=== PATIENT | male | born 1985 | race Caucasian/White ===

== ENCOUNTER 2018-01-24 13:16 | Emergency (ER) | payer OTHER ==
[2018-01-24] MEDS ORDERED: TORAdol 30 mg Injection IM ONE (13:52)
--- NOTE | 2018-01-24 13:58 | ERPHSYRPT ---
- History of Present Illness Time Seen by Provider: 01/24/18 13:54 Source: patient Exam Limitations: no limitations Patient Subjective Stated Complaint: pain to right wrist and fingers for one week. saw HEDIS SPECIALIST and was given antinflammatory. states is not getting any better. is to see ortho at the end of january Triage Nursing Assessment: ambulated to room per self. skin w/d, color normal. patient holding arm up in air and is shaking extremities. no injury noted to extremity. has brace on. Physician History: 32-year-old white male arrives crying in pain He complains of pain right dorsal hand radiating up his right arm symptoms for 6 months He states is worse upon awakening this morning He has been seen by his family doctor is also been [facility] days ago He had an x-ray of his right hand several days ago which was normal Past medical history is negative Past surgical history negative Social history positive for tobacco use Occurred: other (symptoms 6 months worse today) Method of Injury: unknown Quality: intermittent Severity of Pain-Max: moderate Severity of Pain-Current: moderate Extremities Pain Location: forearm: right, wrist: right, hand: right Modifying Factors: Improves With: movement Associated Symptoms: none Allergies/Adverse Reactions: No Known Drug Allergies Allergy (Verified 01/24/18 13:54) Home Medications: Diclofenac Sodium 50 mg [Voltaren 50 mg] 50 mg PO UD 01/24/18 [History] No Reportable Medications [No Reported Medications] 01/24/18 [History] Hx Tetanus, Diphtheria Vaccination/Date Given: Yes Hx Influenza Vaccination/Date Given: No Hx Pneumococcal Vaccination/Date Given: No - Review of Systems Constitutional: No Fever, No Chills Eyes: No Symptoms Ears, Nose, & Throat: No Symptoms Respiratory: No Cough, No Dyspnea Cardiac: No Chest Pain, No Edema, No Syncope Abdominal/Gastrointestinal: No Abdominal Pain, No Nausea, No Vomiting, No Diarrhea Genitourinary Symptoms: No Dysuria Musculoskeletal: Other (right hand radiating up right forearm) Skin: No Rash Neurological: No Dizziness, No Focal Weakness, No Sensory Changes Psychological: No Symptoms Endocrine: No Symptoms All Other Systems: Reviewed and Negative - Past Medical History Pertinent Past Medical History: No Neurological History: No Pertinent History ENT History: No Pertinent History Cardiac History: No Pertinent History Respiratory History: No Pertinent History Endocrine Medical History: No Pertinent History Musculoskeletal History: No Pertinent History GI Medical History: No Pertinent History History: No Pertinent History Psycho-Social History: No Pertinent History - Past Surgical History Past Surgical History: No Neuro Surgical History: No Pertinent History Cardiac: No Pertinent History Respiratory: No Pertinent History Gastrointestinal: No Pertinent History Genitourinary: No Pertinent History Musculoskeletal: No Pertinent History Male Surgical History: No Pertinent History - Social History Smoking Status: Current every day smoker Exposure to second hand smoke: Yes Drug Use: none Patient Lives Alone: No - Nursing Vital Signs Nursing Vital Signs: Initial Vital Signs Temperature 97.8 F 01/24/18 13:39 Pulse Rate 102 H 01/24/18 13:39 Respiratory Rate 18 01/24/18 13:39 Blood Pressure 128/94 01/24/18 13:39 O2 Sat by Pulse Oximetry 98 01/24/18 13:39 Pain Scale Pain Intensity 7 - Physical Exam General Appearance: moderate distress Eyes, Ears, Nose, Throat Exam: moist mucous membranes Neck Exam: non-tender, supple Cardiovascular/Respiratory Exam: chest non-tender, normal breath sounds, regular rate/rhythm, no respiratory distress Abdominal Exam: non-tender, No guarding Back Exam: normal inspection, No vertebral tenderness Shoulder Exam: normal inspection, non-tender, no evidence of injury, normal ROM Elbow/Forearm Exam: normal inspection, non-tender, no evidence of injury, normal ROM Wrist Exam: pain (pain right wrist decreased movement right wrist sevondary to pain) Hand Exam: No normal inspection (pain with palpation right dorsal hand, decreased range of motion right hand secondary to pain.) Neuro/Tendon Exam: normal sensation, normal motor functions Mental Status Exam: alert, oriented x 3 Skin Exam: normal color, warm, dry SpO2 Interpretation: normal (98%) SpO2: 98 Oxygen Delivery: Room Air - Course Nursing assessment & vital signs reviewed: Yes - Radiology Exams Right Forearm X-ray Interpretation: Discussed w/ radiologist (x-ray right forearm: 1. no acute fracture or other significant focal bone lesion is seen within thr right radius or ulna. 2 incidental note of a negative ulnar varience on AP image of about 3-4 mm) Ordered Tests: Active Orders 24 hr Category Date Time Status FOREARM Stat Exams 01/24/18 13:53 Completed Medication Summary Discontinued Medications Generic Name Dose Route Start Last Admin Trade Name Freq PRN Reason Stop Dose Admin Ketorolac Tromethamine 60 mg 01/24/18 13:52 01/24/18 14:26 Toradol 30 Mg Injection IM 01/24/18 13:53 60 mg STAT ONE Administration Ketorolac Tromethamine Confirm 01/24/18 14:23 Toradol 30 Mg Injection Administered 01/24/18 14:24 Dose 60 mg .ROUTE .STK-MED ONE - Progress Progress: improved Progress Note: 01/24/18 14:59 This is a 32-year-old white male who arrives with complaint of right hand and forearm pain symptoms going on for 6 months. He has recently been seen by outpatient clinic he had a normal hand x-ray. He has also been given the wristlet he is on diclofenac. He arrives crying in pain he is markedly better after receiving an injection of Toradol. X-ray of the right forearm impression 1 no acute fracture or other significant bone lesion seen within the right radius or ulna 2. Incidental note of a negative ulnar variance on AP of about 3-4 mm. Again patient is markedly improved this appears to be chronic pain of the forearm and wrist with patient has been referred to [facility] orthopedic secondary to this. Patient is noted to arrival without a splint in place on his arm. I have told the patient he needs to use his splints as per prescribed by the outpatient clinic and/or his family doctor. He is to take diclofenac as prescribed. . - Departure Time of Disposition: 15:02 Departure Disposition: Home Clinical Impression: right wrist and forearm pain, Chronic pain right wrist and forearm Condition: Fair Critical Care Time: No Referrals: AGA BURGOS [Primary Care Provider] - Additional Instructions: Return home. Ice and elevate your right wrist 24-48 hours. Be sure to use your splints prescribed divided to buy either outpatient clinic or your family doctor. Diclofenac as prescribed by outpatient clinic or your family doctor. Follow-up with your family doctor or your orthopedist. Return for acute distress or for severe symptoms.
[2018-01-24] MEDS ORDERED: TORAdol 30 mg Injection ONE (14:23)
--- NOTE | 2018-01-24 14:33 | XRAY ---
Exam: 2 views of the right forearm from 01/24/2018. Comparison: Right wrist films from 02/08/2016. Indication: No known injury, right forearm and hand pain for one week. Findings: AP and lateral images of the right forearm were obtained. I see no acute fracture or other focal bone lesion. There is a negative ulnar variance of about 3-4 mm on the AP image. Both the right elbow joint space and radiocarpal joint appear unremarkable. No soft tissue foreign body is seen. Impression: 1. No acute fracture or other significant focal bone lesion is seen within the right radius or ulna. 2. Incidental note of a negative ulnar variance on the AP image of about 3-4 mm.
[2018-01-24 14:43] VITALS: BP 119/76; PULSE 82
[2018-01-24 14:57] VITALS: O2SAT 98
== END 2018-01-24 15:09 | disposition home or self-care (01) ==
LOC: ED 13:16
DX: M25.531 Pain in right wrist (principal); M79.631 Pain in right forearm; G89.29 Other chronic pain
CPT/HCPCS: 73090; 96372; 99283; J1885